=== PATIENT | male | born 1940 | race Caucasian/White ===

== ENCOUNTER 2020-11-16 11:28 | Inpatient (IN) | payer OTHER ==
[2020-11-16] MEDS ORDERED: LYRICA100 MG PO (11:42)
[2020-11-17] MEDS ORDERED: OPTIVE EYE DROP15 ML (11:11)
[2020-11-17] MEDS ORDERED: ALPHAGAN P5 M2 (11:11)
== END 2020-11-27 08:10 | disposition left against medical advice (07) | DRG 292 ==
LOC: ER 11:28 → MEDI 17:04 → SEC-K 17:04 → MEDI 11-17 13:02
PROVIDERS: ADMIT Internal Medicine; ATTEND Internal Medicine
PROC: B24BZZZ Ultrasonography of Heart with Aorta (ICD-10-PCS; principal; 2020-11-16)
PROC: 3E0F7SF Introduction of Other Gas into Respiratory Tract, Via Natural or Artificial Opening (ICD-10-PCS; 2020-11-16)
PROC: 4A12X4Z Monitoring of Cardiac Electrical Activity, External Approach (ICD-10-PCS; 2020-11-17)
PROC: 4A033R1 Measurement of Arterial Saturation, Peripheral, Percutaneous Approach (ICD-10-PCS; 2020-11-23)
DX: I11.0 Hypertensive heart disease with heart failure (principal); I48.20 Chronic atrial fibrillation, unspecified; N17.8 Other acute kidney failure; Z20.822 Contact with and (suspected) exposure to COVID-19; I50.33 Acute on chronic diastolic (congestive) heart failure; Z95.1 Presence of aortocoronary bypass graft; R09.02 Hypoxemia; D64.9 Anemia, unspecified